=== PATIENT | female | born 1950 ===

== ENCOUNTER 2022-03-03 10:57 | Emergency (ER) | payer BC ==
[2022-03-03] MEDS ORDERED: Acetaminophen/HYDROcodone 325-5 MG Tab PO ONE (11:29)
[2022-03-03] MEDS ORDERED: Take Home: Acetaminophen/HYDROcodone 325-5 MG, 2 Tab Pack PO ONE (12:00)
== END 2022-03-03 12:50 | disposition home or self-care (01) ==
LOC: CC.ED 10:57
DX: S52.592A Other fractures of lower end of left radius, initial encounter for closed fracture (principal); S52.591A Other fractures of lower end of right radius, initial encounter for closed fracture; E03.9 Hypothyroidism, unspecified; Z88.0 Allergy status to penicillin; Z79.899 Other long term (current) drug therapy; W18.39XA Other fall on same level, initial encounter
CPT/HCPCS: 29125; 73100-RT; 73110-LT; 99283; 99283-25; A9270-GY